=== PATIENT | female | born 1995 | race African-American/Black ===

== ENCOUNTER 2020-11-19 11:47 | Emergency (ER) | payer OTHER ==
[2020-11-19 12:04] VITALS: BP 110/75; PULSE 112; TEMP 97.8; BMI 31.7
[2020-11-19] MEDS ORDERED: ACETAMINOPHEN 500 MG TABLET (FP) PO ONE (12:58)
[2020-11-19] MEDS ORDERED: ACETAMINOPHEN 500 MG TABLET (FP) ONE (13:00)
== END 2020-11-19 13:12 | disposition home or self-care (01) ==
LOC: JERFT 11:47
DX: M25.532 Pain in left wrist (principal); X50.0XXA Overexertion from strenuous movement or load, initial encounter
CPT/HCPCS: 99283-25

== ENCOUNTER 2020-11-29 23:54 | Emergency (ER) | payer OTHER ==
[2020-11-30 00:33] VITALS: BP 102/68; PULSE 100; TEMP 98.4; BMI 31.7
== END 2020-11-30 04:00 | disposition left against medical advice (07) ==
LOC: JER 23:54
DX: M25.532 Pain in left wrist (principal)
CPT/HCPCS: 73110-TC-LT-FY; 73130-TC-LT-FY; 93005; 93010; 93971; 99285-25

== ENCOUNTER 2020-12-01 12:16 | Emergency (ER) | payer OTHER ==
[2020-12-01 12:35] VITALS: BP 107/72; PULSE 110; TEMP 97; BMI 31.7
== END 2020-12-01 13:15 | disposition home or self-care (01) ==
LOC: JER 12:16 → JERFT 12:16
DX: M25.532 Pain in left wrist (principal)
CPT/HCPCS: 99281-25

== ENCOUNTER 2021-01-03 07:10 | Inpatient (IN) | payer OTHER ==
[2021-01-03] MEDS ORDERED: BUTORPHANOL TARTRATE 1 MG/ML VIAL IVPB PRN (07:57)
[2021-01-03] MEDS ORDERED: DINOPROSTONE 10 MG VAGINAL SUPPOSITORY VG ONE (08:20)
[2021-01-03 08:37] VITALS: BMI 32.5
[2021-01-03] MEDS: BUTORPHANOL TARTRATE 1 MG/ML VIAL IVPB SCH ×3 (08:43→17:12)
[2021-01-03] MEDS: ELECTROLYTE-148 SOLN 1,000 ML IV SCH (23:30)
[2021-01-04] MEDS ORDERED: OXYTOCIN 30 UNITS in 0.9% NS 30 UNIT/500 ML INFUS.BAG IVPB ONE (02:17)
[2021-01-04] MEDS: OXYTOCIN 30 UNITS in 0.9% NS 30 UNIT/500 ML INFUS.BAG IVPB SCH ×2 (03:30→22:00)
[2021-01-04] MEDS: BUTORPHANOL TARTRATE 1 MG/ML VIAL IVPB SCH (03:43)
[2021-01-04] MEDS: ELECTROLYTE-148 SOLN 1,000 ML IV SCH (08:02)
[2021-01-04] MEDS ORDERED: NALOXONE HCL 0.4 MG/ML VIAL IVPUSH PRN (17:09)
[2021-01-04] MEDS ORDERED: BUPIVACAINE HCL/PF 0.25% (2.5MG/ML) 10 ML VIAL ONE (17:12)
[2021-01-04] MEDS: FENTANYL/BUPIVACAINE/NS/PF - PCEA - 50 ML DISP.SYRIN EP SCH (17:25)
[2021-01-04] MEDS ORDERED: FENTANYL/BUPIVACAINE/NS/PF - PCEA - 50 ML DISP.SYRIN EP ONE ×2 (17:35→22:24)
[2021-01-04] MEDS ORDERED: BENZOCAINE 28 GM HEMORRHOIDAL OINTMENT TP PRN (20:24)
[2021-01-04] MEDS ORDERED: METHYLERGONOVINE MALEATE 0.2 MG/1 ML AMP IM PRN (20:24)
[2021-01-04] MEDS ORDERED: ACETAMINOPHEN 325 MG TABLET (FP) PO PRN (20:24)
[2021-01-04] MEDS ORDERED: BISACODYL 10 MG SUPP.RECT RC PRN (20:24)
[2021-01-04] MEDS ORDERED: WITCH HAZEL 50% (TUCKS) 40 PAD/JAR PAD TP PRN (20:24)
[2021-01-04] MEDS ORDERED: BENZOCAINE 20% 57 GM BOTTLE TP PRN (20:24)
[2021-01-04] MEDS ORDERED: OXYTOCIN 20 UNITS in 0.9% NS 20 UNIT/1,000 ML INFUS.BAG IV SCH (20:30)
[2021-01-05] MEDS ORDERED: FENTANYL/BUPIVACAINE/NS/PF - PCEA - 50 ML DISP.SYRIN EP ONE (02:26)
[2021-01-05] MEDS: FENTANYL/BUPIVACAINE/NS/PF - PCEA - 50 ML DISP.SYRIN EP SCH ×2 (02:30→17:36)
[2021-01-05] MEDS ORDERED: LIDOCAINE HCL/EPINEPHRINE/PF 10 ML VIAL ONE ×2 (05:32→05:57)
[2021-01-05] MEDS ORDERED: IBUPROFEN 800 MG/8 ML IJ IVPB PRN (05:33)
[2021-01-05] MEDS ORDERED: oxyCODONE HCL 5 MG TABLET PO PRN ×2 (05:33)
[2021-01-05] MEDS ORDERED: CITRIC ACID/SODIUM CITRATE 30 ML UNIT-DOSE CUP PO ONE (05:37)
[2021-01-05] MEDS ORDERED: ceFAZolin SODIUM 1 GM VIAL ONE (05:52)
[2021-01-05] MEDS ORDERED: SODIUM BICARBONATE 8.4% 50 MEQ/50 ML VIAL ONE (05:57)
[2021-01-05] MEDS ORDERED: morphine SULFATE/Preservative Free 0.5 MG/ML (1cc Syringe) ONE ×2 (06:01→06:03)
[2021-01-05] MEDS ORDERED: AZITHROMYCIN IVPB 500 MG/250 ML BAG IVPB ONE (06:11)
[2021-01-05] MEDS ORDERED: OXYTOCIN 10 UNIT/ML 10ML MDV ONE (06:18)
[2021-01-05] MEDS ORDERED: PHENYLEPHRINE HCL 10 MG/1 ML SINGLE DOSE VIAL ONE (06:45)
[2021-01-05] MEDS ORDERED: ONDANSETRON 4 MG/2 ML VIAL ONE (06:45)
[2021-01-05] MEDS ORDERED: OXYTOCIN 20 UNITS in 0.9% NS 20 UNIT/1,000 ML INFUS.BAG IV ONE (07:00)
[2021-01-05 07:29] LABS: CORD BASE EXCESS -5.7 mmol/L (0-2); CORD HCO3 22.1 mmHg (20-29); CORD PCO2 51.8 mmHg (30-78); CORD pH 7.248 (7.14-7.44)
[2021-01-05 07:54] LABS: CORD BASE EXCESS -9.3 mmol/L (0-2); CORD HCO3 19.3 mmHg (20-29); CORD PCO2 52.2 mmHg (30-78); CORD pH 7.186 (7.14-7.44)
[2021-01-05] MEDS: FERROUS SO4 325 MG TABLET (FP) PO SCH ×3 (08:16→17:36)
[2021-01-05] MEDS: PRENATAL VITAMINS W/ FOLIC ACID TABLET (FP) PO SCH (10:05)
[2021-01-05] MEDS: BUTORPHANOL TARTRATE 1 MG/ML VIAL IVPB SCH ×2 (11:07→11:08)
[2021-01-05] MEDS: ELECTROLYTE-148 SOLN 1,000 ML IV SCH (12:40)
[2021-01-05] MEDS: IBUPROFEN 600 MG TABLET (FP) PO PRN (22:03)
[2021-01-05] MEDS: SIMETHICONE 80 MG TAB.CHEW (FP) PO PRN (22:03)
[2021-01-06 08:28] LABS: BASO % 0.3 % (0-2.0); EOS % 0.4 % (0-4.5); HEMATOCRIT 27.2 % (32.4-45.2); HEMOGLOBIN 8.9 GM/dL (10.7-15.3); LYMPH % 9.8 % (8-40); MCH 24.4 pg (25.7-33.7); MCHC 32.7 g/dl (32.0-36.0); MEAN CELL VOLUME 74.7 fl (80-96); MEAN PLT VOLUME 8.8 fl (7.5-11.1); MONO % 6.5 % (3.8-10.2); PLATELET COUNT 232 10^3/uL (134-434); RBC 3.64 M/mm3 (3.60-5.2); RDW 15.5 % (11.6-15.6)
[2021-01-06] MEDS: SIMETHICONE 80 MG TAB.CHEW (FP) PO PRN ×2 (10:26→21:17)
[2021-01-06] MEDS: IBUPROFEN 600 MG TABLET (FP) PO PRN ×2 (10:26→21:18)
[2021-01-06] MEDS: PRENATAL VITAMINS W/ FOLIC ACID TABLET (FP) PO SCH (10:26)
[2021-01-06] MEDS: FERROUS SO4 325 MG TABLET (FP) PO SCH ×3 (10:26→18:05)
[2021-01-06] MEDS: SENNOSIDES/DOCUSATE COMBO (SENNA PLUS) TABLET (UD) PO PRN (21:18)
[2021-01-07] MEDS: SIMETHICONE 80 MG TAB.CHEW (FP) PO PRN ×2 (06:29→16:46)
[2021-01-07] MEDS: IBUPROFEN 600 MG TABLET (FP) PO PRN ×2 (06:29→16:46)
[2021-01-07] MEDS: ELECTROLYTE-148 SOLN 1,000 ML IV SCH (08:50)
[2021-01-07] MEDS: FERROUS SO4 325 MG TABLET (FP) PO SCH ×3 (08:53→16:46)
[2021-01-07] MEDS: PRENATAL VITAMINS W/ FOLIC ACID TABLET (FP) PO SCH (09:36)
[2021-01-07] MEDS: SENNOSIDES/DOCUSATE COMBO (SENNA PLUS) TABLET (UD) PO PRN (22:45)
[2021-01-08 07:13] LABS: BASO % 0.3 % (0-2.0); EOS % 2.8 % (0-4.5); HEMATOCRIT 28.3 % (32.4-45.2); HEMOGLOBIN 9.3 GM/dL (10.7-15.3); LYMPH % 21.9 % (8-40); MCH 24.6 pg (25.7-33.7); MCHC 32.7 g/dl (32.0-36.0); MEAN CELL VOLUME 75.2 fl (80-96); MEAN PLT VOLUME 8.4 fl (7.5-11.1); MONO % 7.2 % (3.8-10.2); NEUT % 67.8 % (42.8-82.8); PLATELET COUNT 288 10^3/uL (134-434); RBC 3.77 M/mm3 (3.60-5.2); RDW 16.2 % (11.6-15.6); WHITE BLOOD COUNT 9.9 K/mm3 (4.0-10.0)
[2021-01-08] MEDS: PRENATAL VITAMINS W/ FOLIC ACID TABLET (FP) PO SCH (09:00)
[2021-01-08] MEDS: IBUPROFEN 600 MG TABLET (FP) PO PRN (09:00)
[2021-01-08] MEDS: FERROUS SO4 325 MG TABLET (FP) PO SCH (09:00)
[2021-01-08 09:51] VITALS: BP 118/73; PULSE 72; TEMP 98
== END 2021-01-08 14:20 | disposition home or self-care (01) | DRG 540 ==
LOC: JLDR 07:10 → J3W 01-05 09:14
PROVIDERS: ADMIT Obstetrics & Gynecology; ATTEND Obstetrics & Gynecology
PROC: 3E0P7VZ Introduction of Hormone into Female Reproductive, Via Natural or Artificial Opening (ICD-10-PCS; 2021-01-03)
PROC: 10D00Z1 Extraction of Products of Conception, Low, Open Approach (ICD-10-PCS; principal; 2021-01-05)
DX: O62.0 Primary inadequate contractions (principal); O76 Abnormality in fetal heart rate and rhythm complicating labor and delivery; O69.81X0 Labor and delivery complicated by cord around neck, without compression, not applicable or unspecified; O99.214 Obesity complicating childbirth; E66.9 Obesity, unspecified; Z3A.39 39 weeks gestation of pregnancy; Z37.0 Single live birth
CPT/HCPCS: 36415; 36600; 80048; 82803; 85025; 85610; 85730; 86780; 86850; 86900; 86901; C9803; U0003; U0005